=== PATIENT | male | born 1960 | race Caucasian/White ===

== ENCOUNTER 2017-04-23 17:49 | Emergency (ER) | payer MEDICAID, OTHER ==
[~2017-04-23] VITALS: Ht 162.6 cm; Wt 80.5 kg
[~2017-04-23 17:49] MED LIST: CIPR500T4 PO; TRAM50TA2 PO
[2017-04-23 17:52] VITALS: Ht 162.6 cm; Wt 80.5 kg
--- NOTE | 2017-04-23 20:52 | RADRPT ---
PROCEDURE: CT Brain without contrast. CLINICAL INDICATION: Pain, headache TECHNIQUE: Routine CT scan of the brain was performed on a high resolution multi detector scanner without intravenous contrast. One or more of the following dose reduction techniques were used: Auto mated exposure control; Adjustment of the mA and/or kV according to patient size; Use of iterative r econstruction technique. CTDI = 43 mGy. DLP = 720 mGy-cm. COMPARISON: No prior relevant examinations are available for comparison. FINDINGS: Hemorrhage: No evidence of intracranial hemorrhage. Acute ischemic changes: No evidence of acute ischemic changes. Mass effect: None. Parenchymal volume: Within normal limits for age. Ventricular system: Concordant with parenchymal volume. Chronic changes: Parenchymal attenuation is within normal limits. Extracranial soft tissues: Soft tissue swelling left frontal scalp. Calvarium: No fractures. Paranasal sinuses: Visualized paranasal sinuses are clear. Mastoid air cells: Visualized mastoid air cells are clear. IMPRESSION: No acute intracranial abnormalities. Normal appearance of the brain parenchyma. Soft tissue swelling of the left frontal scalp without evidence of underlying fracture. RPTAT: AADD .Gary Parry MD, MD Date Time Electronically viewed and signed by .Gary Parry MD, on 04/23/2017 20:52 .B/
[2017-04-23] MEDS ORDERED: ACET500C5 PO (21:04)
[2017-04-23 21:11] VITALS: BP 142/90; RESP 17; TEMP 98.7
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
[2017-05-02] MEDS ORDERED: IBUP-1542 PO (16:07)
== END 2017-04-23 21:22 | disposition home or self-care (01) ==
LOC: FTE 17:49
DX: S09.90XA Unspecified injury of head, initial encounter (principal); R51 Headache; W22.8XXA Striking against or struck by other objects, initial encounter; Y92.9 Unspecified place or not applicable
CPT/HCPCS: 70450; Z7502

== ENCOUNTER 2017-05-02 15:03 | Emergency (ER) | END 2017-05-02 16:21 | disposition home or self-care (01) | DX: S00.83XA Contusion of other part of head, initial encounter (principal); W22.8XXA Striking against or struck by other objects, initial encounter; Y92.009 Unspecified place in unspecified non-institutional (private) residence as the place of occurrence of the external cause | CPT/HCPCS: 70450; Z7502 ==